=== PATIENT | female | born 1955 | race Caucasian/White ===

== ENCOUNTER → 2017-05-21 | Outpatient (CLI) | payer MEDICARE ==
[2017-05-21 11:54] LABS: HEMOGLOBIN 13.6 g/dL (12.2-16.2); LYMPH # 1.7 K/mm3 (0.7-4.5); LYMPH % 27.8 % (10-50.0)
[2017-05-22 08:44] LABS: Thyroid Peroxidase (TPO) Ab 12 IU/mL (0-34); Vitamin D, 25-Hydroxy 44.4 ng/mL (30.0-100.0)
[2017-05-22 12:36] LABS: Thyroglobulin Antibody <1.0 IU/mL (0.0-0.9)
[2017-05-22 16:37] LABS: t-Transglutaminase (tTG) IgA <2 U/mL (0-3)
[2017-05-23 09:38] LABS: Antinuclear Antibodies, IFA Negative (.)
[2017-05-25 18:49] LABS: RETICULIN IGA ANTIBODIES NEGATIVE TITER (<1:10)
== END ==
LOC: LAB 11:02
PROVIDERS: Allergy & Immunology
DX: L29.9 Pruritus, unspecified (principal); E55.9 Vitamin D deficiency, unspecified